=== PATIENT | male | born 1995 | race African-American/Black ===

== ENCOUNTER 2018-12-23 12:12 | Emergency (ER) | payer SELFPAY ==
[~2018-12-23] VITALS: Ht 180.3 cm; Wt 64.0 kg
[2018-12-23 13:51] VITALS: BP 131/83
== END 2018-12-23 13:53 | disposition home or self-care (01) ==
LOC: ER 12:12
DX: R21 Rash and other nonspecific skin eruption (principal); R19.7 Diarrhea, unspecified; R22.1 Localized swelling, mass and lump, neck; R68.83 Chills (without fever)
CPT/HCPCS: 99281

== ENCOUNTER 2019-03-12 08:21 | Emergency (ER) | payer SELFPAY ==
[~2019-03-12] VITALS: Ht 180.3 cm; Wt 64.0 kg
[2019-03-12 09:50] VITALS: BP 128/82
== END 2019-03-12 09:54 | disposition home or self-care (01) ==
LOC: ER 08:21
DX: L70.0 Acne vulgaris (principal); F12.90 Cannabis use, unspecified, uncomplicated
CPT/HCPCS: 99283

== ENCOUNTER 2022-07-23 11:23 | Emergency (ER) | payer MEDICAID ==
[~2022-07-23] VITALS: Ht 180.3 cm; Wt 63.0 kg
[2022-07-23 11:26] VITALS: BP 119/85
== END 2022-07-23 16:14 | disposition home or self-care (01) ==
LOC: ER 11:23
DX: R05.9 Cough, unspecified (principal); F12.10 Cannabis abuse, uncomplicated; Z20.822 Contact with and (suspected) exposure to COVID-19
CPT/HCPCS: 87426; 99283; C9803